=== PATIENT | female | born 1995 | race Two or more races ===

== ENCOUNTER 2023-11-05 11:12 | Outpatient (CLI) | payer OTHER | END 2023-11-05 11:14 | disposition home or self-care (01) | LOC: PRENATAL 11:12 | PROVIDERS: ATTEND Obstetrics & Gynecology Maternal & Fetal Medicine | DX: Z76.1 Encounter for health supervision and care of foundling (principal) ==

== ENCOUNTER 2024-03-14 08:30 | Inpatient (IN) | payer OTHER ==
[~2024-03-14] VITALS: Ht 162.6 cm; Wt 82.1 kg
[2024-03-14] MEDS ORDERED: PRENATABS RX T1 EACH PO (10:27)
[2024-03-14 11:14] LABS: HEMATOCRIT 29.8 % (36.0-45.00); MEAN CELL VOLUME 79.2 fL (80.00-100.00); MEAN CORPUSCULAR HEMOGLOBIN 26.7 pg (27.00-32.0); MEAN CORPUSCULAR HGB CONC 33.7 g/dl (32.0-36.0); PLATELET COUNT 314 K/uL (150-450); RED BLOOD COUNT 3.76 M/uL (4.00-6.00); RED CELL DISTRIBUTION WIDTH 18.8 % (11.5-14.5)
[2024-03-14 11:18] LABS: PH,URINE 7.5 (5.0-8.0); URINE APPEARANCE Clear; URINE BILIRRUBIN Negative (NEGATIVE); URINE BLOOD Negative; URINE COLOR Yellow; URINE GLUCOSE Negative (NEGATIVE); URINE KETONE Negative (NEGATIVE); URINE LEUKOCYTE Small; URINE NITRATE Negative; URINE PROTEIN Negative (NEGATIVE)
[2024-03-14 11:19] LABS: URINE BACTERIA 823.5 uL (0.0-1933); URINE EPITHELIAL CELLS 22.7 uL (0.0-38.8); URINE RBC 6.4 uL (0.0-20.8)
[2024-03-14 11:26] LABS: INR 0.94; PARTIAL THROMBOPLASTIN TIME 28.2 SECONDS (22.0-34.0); PROTHROMBIN TIME 10.3 SECONDS (9.0-11.5)
[2024-03-14 12:15] LABS: RH POSITIVE
[2024-03-15] MEDS ORDERED: IRON325 MG PO (08:04)
[2024-03-15 08:06] VITALS: BP 113/75
[2024-03-15] MEDS ORDERED: OXYTOCIN 10 UNITS/ML VIAL ONE (13:49)
[2024-03-15] MEDS ORDERED: ERYTHROMYCIN BASE OPHT 1GM EACH TUBE OP ONE (13:49)
[2024-03-15] MEDS ORDERED: CEFAZOLIN SODIUM 1,000 MG VIAL ONE (14:21)
[2024-03-15] MEDS ORDERED: MEPERIDINE HCL/PF 50 MG/ML VIAL IM PRN (15:45)
[2024-03-15] MEDS ORDERED: PROMETHAZINE HCL 50 MG/ML AMPUL IM PRN (15:45)
[2024-03-15] MEDS ORDERED: MORPHINE SULFATE 4 MG/ML VIAL IV ONE (17:15)
[2024-03-15 18:29] VITALS: BP 110/71
[2024-03-16 00:19] VITALS: BP 121/81
[2024-03-16 07:09] LABS: HEMATOCRIT 27.6 % (36.0-45.00); HEMOGLOBIN 9.5 g/dL (12.0-15.00); MEAN CELL VOLUME 78.7 fL (80.00-100.00); MEAN CORPUSCULAR HGB CONC 34.3 g/dl (32.0-36.0); PLATELET COUNT 307 K/uL (150-450); RED BLOOD COUNT 3.51 M/uL (4.00-6.00); RED CELL DISTRIBUTION WIDTH 19.4 % (11.5-14.5)
[2024-03-16] MEDS ORDERED: OxyCODONE HCL/APAP UD (PERCOCET) PO PRN (08:00)
[2024-03-16 08:04] VITALS: BP 115/72
[2024-03-16] MEDS ORDERED: DOCUSATE SODIUM 100MG CAP PO SCH (09:00)
[2024-03-16] MEDS ORDERED: PNV,CALCIUM 72/IRON/FOLIC ACID 1 TAB TABLET PO SCH (09:00)
[2024-03-16] MEDS ORDERED: SIMETHICONE 125 MG CAPSULE PO SCH (09:00)
[2024-03-16 13:46] VITALS: BP 105/71
[2024-03-16 15:57] VITALS: BP 107/67
[2024-03-16 19:33] VITALS: BP 100/72
[2024-03-17] VITALS: BP 99/63
[2024-03-17 08:37] VITALS: BP 129/74
[2024-03-17 16:55] VITALS: BP 110/74
[2024-03-18 00:45] VITALS: BP 103/70
[2024-03-18 08:00] VITALS: BP 111/65
[2024-03-18] MEDS ORDERED: OxyCODONE HCL/APAP UD (PERCOCET) PO PRN (13:00)
[2024-03-18 15:12] VITALS: BP 102/67
== END 2024-03-18 16:37 | disposition home or self-care (01) | DRG 785 ==
LOC: O/R 03-15 07:41 → OB/GYN 03-15 07:41
PROVIDERS: ADMIT Obstetrics & Gynecology; ATTEND Obstetrics & Gynecology
PROC: 0UB70ZZ Excision of Bilateral Fallopian Tubes, Open Approach (ICD-10-PCS; 2024-03-15)
PROC: 4A1HXCZ Monitoring of Products of Conception, Cardiac Rate, External Approach (ICD-10-PCS; 2024-03-15)
PROC: 10D00Z1 Extraction of Products of Conception, Low, Open Approach (ICD-10-PCS; principal; 2024-03-15 18:45)
DX: O34.211 Maternal care for low transverse scar from previous cesarean delivery (principal); Z3A.38 38 weeks gestation of pregnancy; Z37.0 Single live birth; Z30.2 Encounter for sterilization